=== PATIENT | female | born 2000 | race Two or more races ===

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

== ENCOUNTER 2020-08-10 17:15 | Emergency (ER) | payer BC ==
[~2020-08-10] VITALS: Ht 160 cm; Wt 63.6 kg
[~2020-08-10 17:15] MED LIST: CEPH500T PO; IBUP-1060 PO; PENI500T PO
--- NOTE | 2020-08-10 17:43 | PHYS DOC ---
Past Medical History Past Medical History: No Pertinent History, UTI Past Surgical History: No Surgical History Smoking Status: Never Smoker Alcohol Use: None Drug Use: None General Adult EDM: Chief Complaint: ABDOMINAL PAIN HPI: HPI: Patient is a 19 year old female with history of UTI presenting today compl aining of mild bilateral pelvic pain, symptoms began 4 days ago. Patient denies anything exacerbating or relieving the pain. Describes the pain as sharp and intermittent. States the last time she had similar pain she had UTI. Review of Systems: Review of Systems: Constitutional: Denies fever or chills. [] Eyes: Denies change in visual acuity. [] HENT: Denies nasal congestion or sore throat. [] Respiratory: Denies cough or shortness of breath. [] Cardiovascular: Denies chest pain or edema. [] GI: Reports pelvic pain. Denies abdominal pain, nausea, vomiting, bloody stools or diarrhea. [] : denies dysuria. [] Musculoskeletal: Denies back pain or joint pain. [] Integument: Denies rash. [] Neurologic: Denies headache, focal weakness or sensory changes. [] Psychiatric: Denies depression or anxiety. [] Heart Score: Risk Factors: Risk Factors: DM, Current or recent (<one month) smoker, HTN, HLP, family history of CAD, obesity. Risk Scores: Score 0 - 3: 2.5% MACE over next 6 weeks - Discharge Home Score 4 - 6: 20.3% MACE over next 6 weeks - Admit for Clinical Observation Score 7 - 10: 72.7% MACE over next 6 weeks - Early Invasive Strategies Allergies: Allergies: Allergies Coded Allergies Type Severity Reaction Last Updated Verified No Known Drug Allergies 10/13/14 No Physical Exam: PE: Constitutional: Well developed, well nourished, no acute distress, non-toxic appearance. [] HENT: Normocephalic, atraumatic, bilateral external ears normal, oropharynx moist, no oral exudates, nose normal. [] Eyes: PERRLA, EOMI, conjunctiva normal, no discharge. [] Neck: Normal range of motion, no tenderness, supple, no stridor. [] Cardiovascular:Heart rate regular rhythm, no murmur [] Lungs & Thorax: Bilateral breath sounds clear to auscultation [] Abdomen: Bowel sounds normal, soft, no tenderness, no masses, no pulsatile masses. [] Pelvic exam External pelvic appears normal, cervix is visualized, closed, no CMT, no adnexal tenderness. Small amount of white discharge in the vaginal vault. Skin: Warm, dry, no erythema, no rash. [] Back: No tenderness, no CVA tenderness. [] Extremities: No tenderness, no cyanosis, no clubbing, ROM intact, no edema. [] Neurologic: Alert and oriented X 3, normal motor function, normal sensory function, no focal deficits noted. [] Psychologic: Affect normal, judgement normal, mood normal. [] EKG: EKG: [] Radiology/Procedures: Radiology/Procedures: [] Course & Med Decision Making: Course & Med Decision Making Pertinent Labs and Imaging studies reviewed. (See chart for details) This is a 19-year-old female patient presenting to the ED today with pelvic pain, symptoms began 4 days ago. Positive for UTI and bacterial vaginosis, discharged on cephalexin and Flagyl. Follow-up with PCP in 1 to 2 weeks. Dot Disclaimer: Dot Disclaimer: This electronic medical record was generated, in whole or in part, using a voice recognition dictation system. Departure Departure Impression: Primary Impression: UTI (urinary tract infection) Qualified Codes: N39.0 - Urinary tract infection, site not specified Additional Impression: Bacterial vaginosis Disposition: 01 DC HOME SELF CARE/HOMELESS Condition: STABLE Referrals: NO PCP (PCP) Follow-up with your doctor in 1 to 2 weeks Patient Instructions: Bacterial Vaginosis, [id number], Urinary Tract Infection Additional Instructions: You have urinary tract infection and bacterial vaginosis. We put you on antib iotics, take them as prescribed until completed. You can take Tylenol or Motrin for your pain. Follow-up with your doctor in 1 to 2 weeks Scripts Metronidazole (FLAGYL) 500 Mg Tablet 1 TAB PO BID, #14 TAB Prov: IAN SHIPLEY PIANO MECHANIC 08/10/20 Cephalexin (CEPHALEXIN) 500 Mg Tablet 1 TAB PO BID, #14 TAB Prov: MUTUNGAIAN PIANO MECHANIC 08/10/20 IAN SHIPLEY APRN Aug 10, 2020 17:43
[2020-08-10 17:53] LABS: BILIRUBIN,URINE NEGATIVE (NEG); CLARITY,URINE CLEAR; COLOR,URINE YELLOW; NITRITE,URINE POSITIVE (NEG); PH,URINE 6.5 (<5.0-8.0); PROTEIN,URINE NEGATIVE (NEG-TRACE)
[2020-08-10 18:08] VITALS: BP 118/62
[2020-08-10 18:10] LABS: BACTERIA,URINE MOD /HPF (0-FEW); WBC,URINE 20-40 /HPF (0-4)
[2020-08-10] MEDS ORDERED: METR500T PO (18:17)
[2020-08-10] MEDS ORDERED: CEPH500T PO (18:17)
[2020-08-13 00:11] LABS: GC PROBE Negative (Negative)
== END 2020-08-10 18:23 | disposition home or self-care (01) ==
LOC: ER 17:15
DX: N39.0 Urinary tract infection, site not specified (principal); N76.0 Acute vaginitis; B96.89 Other specified bacterial agents as the cause of diseases classified elsewhere
CPT/HCPCS: 81001; 81025; 87491; 87591; 99284; Q0111

== ENCOUNTER 2020-10-18 17:24 | Observation (INO) | payer SELFPAY ==
[~2020-10-18] VITALS: Ht 157.5 cm; Wt 73.0 kg
[~2020-10-18 17:24] MED LIST changes: +METR500T PO
--- NOTE | 2020-10-18 20:29 | PHYS DOC ---
Past Medical History Past Medical History: No Pertinent History, UTI Past Surgical History: No Surgical History Smoking Status: Never Smoker Alcohol Use: None Drug Use: None General Adult EDM: Chief Complaint: ABDOMINAL PAIN HPI: HPI: Patient is a 19 year old female with no past medical history presents emergency department for left-sided and lower abdominal pain. Patient reports pain started yesterday. Located in the left side of the abdomen, constant, sharp, radiates down to the left and right lower quadrant. She denies nausea vomiting fever chills chest pain shortness of breath dysuria hematuria vaginal bleeding vaginal discharge. Patient denies history of STD. Patient has had no abdominal surgeries. Denies drugs alcohol or tobacco. Review of Systems: Review of Systems: Review of Systems: Constitutional: Denies fever or chills Eyes: Denies redness or eye pain HENT: Denies nasal congestion or sore throat Respiratory: Denies cough or shortness of breath Cardiovascular: Denies chest pain or palpitations GI: denies nausea, denies vomiting or diarrhea : Denies dysuria or hematuria Musculoskeletal: Denies back pain or joint pain Integument: Denies rash or skin lesions Neurologic: Denies headache, focal weakness or sensory changes Heart Score: C/O Chest Pain: No Allergies: Allergies: Allergies Coded Allergies Type Severity Reaction Last Updated Verified No Known Drug Allergies 10/13/14 No Physical Exam: PE: *GENERAL APPEARANCE: Awake and alert. Cooperative. No acute distress. Non toxic appearing. HEAD: Normocephalic. Atraumatic. EYES: EOM's grossly intact. Sclera anicteric. Conjunctiva clear ENT:. Airway patent. Mucous membranes moist. No trismus. Tolerating secretions. NECK: Supple. Trachea midline. HEART: Regular rate and rhythm. Radial pulses 2+. Good capillary refill. LUNGS: Respirations unlabored. Clear to auscultation bilaterally. No rales, rhonchi, wheezing or retractions. ABDOMEN: Soft. left lower abdominal tenderness. Left CVA tenderness. +rovsigns. No guarding or rebound. No right CVA tenderness. No palpable or pulsatile mass. EXTREMITIES: No acute deformities. No edema, erythema or calf tenderness. SKIN: Warm and dry. No rash. NEUROLOGICAL: Alert and oriented x3. No gross neurological deficits. Moves all 4 extremities spontaneously. PSYCHIATRIC: Normal mood. Current Patient Data: Vital Signs: Vital Signs Date Time Temp Pulse Resp B/P (MAP) Pulse Ox O2 Delivery O2 Flow Rate FiO2 10/18/20 18:46 97.6 72 18 128/71 (90) 98 Room Air 97.6 EKG: EKG: [] Radiology/Procedures: Radiology/Procedures: []PATIENT: OLIVIA MARIAACCOUNT: [id number]#: [id number] : 2000 LOCATION: ER AGE: 19 SEX: F EXAM STATUS: REG ER ORD. PHYSICIAN: GOPAL BURR DO REASON: left sided abd pain PROCEDURE: CT ABD PELV W/ IV CONTRST ONLY INDICATION: Reason: left sided abd pain / Spl. Instructions: [id number] [phone] / History: . COMPARISON: None. TECHNIQUE: Axial CT images obtained through the abdomen and pelvis with contrast. One or more of the following individualized dose reduction techniques were utilized for this examination: 1. Automated exposure control; 2. Adjustment of the mA and/or kV according to patient size; 3. Use of iterative reconstruction technique. FINDINGS: Abdominal aorta is not aneurysmal. Region of low density within the lower thoracic aorta. No intrahepatic bile duct dilation. No peripancreatic fluid collection. Spleen unremarkable. No hydronephrosis. Urinary bladder is partially distended. Uterus is visualized. Appendix measures up to about 6 mm without adjacent inflammatory changes seen at this time. Fullness of bilateral adnexa. IMPRESSION: * No evidence of bowel obstruction or hydronephrosis. * Appendix measures near the upper limits of normal in size without definitive adjacent inflammatory changes at this time therefore this does not fulfill all of the CT criteria for appendicitis. * At the lower thoracic aorta there is a linear region of low density of the lumen. This is likely artifactual in nature but if the patient does have symptoms in the region and further clarification is desired CT angiogram of the chest could BE obtained to exclude dissection flap which would be a less likely cause of this finding in a patient of this age. * There is some mild prominence of the bilateral adnexa left greater than right. Could be from prominent ovarian size but underlying ovarian lesion not excluded. Electronically signed by: Julita Berumen MD (10/18/2020 10:08 PM) [employer]- [id number] DICTATED and SIGNED BY: JULITA BERUMEN MD DATE: 10/18/20 [id number] PATIENT: OLIVIA MARIA ACCOUNT: [id number] : 2000 LOCATION: ER AGE: 19 SEX: F EXAM STATUS: REG ER ORD. PHYSICIAN: GOPAL BURR DO REASON: lt abd pain r/o torsion PROCEDURE: PELVIS ULTRASOUND Pelvic ultrasound complete: Reason for examination: Left lower quadrant abdominal pain. Transabdominal ultrasound examination of the pelvis was performed. Uterus measures 6.8 x 5.0 x 3.3 cm in greatest dimensions and shows no focal mass. Endometrium is not abnormally thickened at 6 mm. Right ovary measures 2.9 x 1.5 x 1.2 cm in greatest dimension and shows good vascular flow. Left ovary measures 2.8 x 2.2 x 2.1 cm in greatest dimension and shows good vascular flow. No adnexal masses or free fluid are evident. IMPRESSION: Good vascular flow to the ovaries bilaterally. No focal abnormality seen in the pelvis. Electronically signed by: Hardy Acuña MD (10/18/2020 11:51 PM) [facility] DICTATED and SIGNED BY: HARDY ACUÑA MD DATE: 10/18/20 [id number] PATIENT: OLIVIA MARIA ACCOUNT: [id number] : 2000 LOCATION: ER AGE: 19 SEX: F EXAM STATUS: REG ER ORD. PHYSICIAN: GOPAL BURR DO REASON: abnormality of thoracic aorta, left flank pain PROCEDURE: CT ANGIOGRAPHY CHEST CT angiogram of the chest with contrast: Reason for examination: Left flank pain. Evaluate for possible chest abnormality. Helical images were obtained through the chest with intravenous administration of Omnipaque 350 using PE protocol. 3-D MIPS reconstruction was performed in sagittal and coronal planes. Exposure: One or more of the following individualized dose reduction techniques were utilized for this examination: 1. Automated exposure control 2. Ad justment of the mA and/or kV according to patient size 3. Use of iterative reconstruction technique. No abnormality seen at the thyroid gland. The trachea and mainstem bronchi show no intraluminal lesions. No abnormality seen at the esophagus. The thoracic aorta and visualized portion of the upper abdominal aorta shows no aneurysmal dilatation or dissection. The heart size is normal with no pericardial effusion. There is no evidence of pulmonary embolus. The lung hwang are clear. No acute bony abnormalities seen. Visualized portions of the liver, spleen and kidneys show no abnormalities. IMPRESSION: No evidence of pulmonary embolus. No thoracic aortic aneurysm or dissection. No acute abnormality seen in the chest. Electronically signed by: Hardy Acuña MD (10/19/2020 2:39 AM) [facility] DICTATED and SIGNED BY: HARDY ACUÑA MD DATE: 10/19/20 [id number] Course & Med Decision Making: Course & Med Decision Making MDM: 19-year-old female presents emergency department for abdominal pain. Here in the emergency department patient's abdomen is tender in the lower abdomen. Upon palpation of the left side of the abdomen the right side does cause some pain. Does have some left CVA tenderness. Patient's vital signs are stable. No leukocytosis. Patient is not . Patient does have some blood in her urine. She is currently not on her menstrual cycle. CT abdomen pelvis showed the appendix at the upper limits of normal. There is a linear area in the thoracic aorta of low density that is possibly artifactual but could be dissection. Mild prominence of bilateral adnexa left greater than right. Could be from ovarian size but ovarian lesion not excluded. With this CT finding ultrasound of the pelvis was done that showed no abnormalities. Good flow to both ovaries. CT of the chest unremarkable. Patient is still having pain in the abdomen. I did discuss case with the general surgeon Dr. Davis about the patient's symptoms and slightly abnormal appendix. Defers admission to the hospitalist service. Will see in consultation. At this time based on patient's symptoms and findings will admit to the hospital for further observation and evaluation. Spoke with patient. Agreeable to admission. They are aware of all labs and imaging. All questions answered and patient stable at time of admission. Dragon Disclaimer: Dragon Disclaimer: This electronic medical record was generated, in whole or in part, using a voice recognition dictation system. Departure Departure Impression: Primary Impression: Abdominal pain Disposition: ADMITTED INPT THIS HOSP (Patient admitted to Dr. Euceda at 0300. Patient stable at time of admission. Spoke with Dr. Euceda at 0530. Will see the patient. ) Condition: STABLE Referrals: NO PCP (PCP) Scripts Dicyclomine Hcl (DICYCLOMINE HCL) 10 Mg Capsule 1 CAP PO PRN Q6HRS PRN for ABDOMINAL CRAMPS, #30 CAP 0 Refills Prov: ZHENG SHEN MD 10/19/20 [facility]URR [facility] 20[facility]29
[2020-10-18 20:30] LABS: BILIRUBIN,URINE NEGATIVE (NEG); CLARITY,URINE CLEAR; COLOR,URINE YELLOW; NITRITE,URINE NEGATIVE (NEG); PH,URINE 6.5 (<5.0-8.0); PROTEIN,URINE NEGATIVE (NEG-TRACE)
[2020-10-18 20:35] LABS: BACTERIA,URINE 0 /HPF (0-FEW); RBC,URINE OCC /HPF (0-2); WBC,URINE 0 /HPF (0-4)
[2020-10-18 21:23] LABS: BASO % 1 % (0-3); EOS % 1 % (0-3); HEMATOCRIT 35.3 % (36.0-47.0); LYMPH # 2.5 x10^3/uL (1.0-4.8); LYMPH % 29 % (24-48); MEAN CORPUSCULAR HEMOGLOBIN 23 pg (25-35); MEAN CORPUSCULAR HGB CONC 31 g/dL (31-37); MEAN CORPUSCULAR VOLUME 73 fL (79-100); MONO # 0.6 x10^3/uL (0.0-1.1); MONO % 7 % (0-9); NEUT # 5.4 x10^3/uL (1.8-7.7); NEUT % 63 % (31-73); PLATELET COUNT 302 x10^3/uL (140-400); RED BLOOD COUNT 4.82 x10^6/uL (3.50-5.40); RED CELL DISTRIBUTION WIDTH 19.9 % (11.5-14.5); WHITE BLOOD COUNT 8.6 x10^3/uL (4.0-11.0)
[2020-10-18 21:36] LABS: CALCIUM 8.5 mg/dL (8.5-10.1); CREATININE 0.7 mg/dL (0.6-1.0); GFR 107.8; POTASSIUM 3.7 mmol/L (3.5-5.1)
[2020-10-18] MEDS ORDERED: CONTRAST GIVEN. MC PRN (21:45)
[2020-10-18 21:48] LABS: ALBUMIN 3.7 g/dL (3.4-5.0); ALBUMIN/GLOBULIN RATIO 0.8 (1.0-1.7); TOTAL BILIRUBIN 0.4 mg/dL (0.2-1.0); TOTAL PROTEIN 8.1 g/dL (6.4-8.2)
[2020-10-18 22:00] LABS: PLT ESTIMATE ADEQUATE (ADEQUATE)
[2020-10-18] MEDS ORDERED: IOHEXOL 300 MG/ML 100ML VIAL. IV ONE (22:00)
[2020-10-18 22:01] LABS: ANISOCYTOSIS SLIGHT; HYPOCHROMIA MOD; MICROCYTOSIS SLIGHT; OVALOCYTES FEW; POIKILOCYTOSIS SLIGHT
--- NOTE | 2020-10-18 22:10 | RAD ---
INDICATION: Reason: left sided abd pain / Spl. Instructions: [id number] [phone] / History: . COMPARISON: None. TECHNIQUE: Axial CT images obtained through the abdomen and pelvis with contrast. One or more of the following individualized dose reduction techniques were utilized for this examinat ion: 1. Automated exposure control; 2. Adjustment of the mA and/or kV according to patient size; 3 . Use of iterative reconstruction technique. FINDINGS: Abdominal aorta is not aneurysmal. Region of low density within the lower thoracic aorta. No intrahepatic bile duct dilation. No peripancreatic fluid collection. Spleen unremarkable. No hydronephrosis. Urinary bladder is partially distended. Uterus is visualized. Appendix measures up to about 6 mm without adjacent inflammatory changes seen at this time. Fullness of bilateral adnexa. IMPRESSION: * No evidence of bowel obstruction or hydronephrosis. * Appendix measures near the upper limits of normal in size without definitive adjacent inflammatory changes at this time therefore this does not fulfill all of the CT criteria for appendicitis. * At the lower thoracic aorta there is a linear region of low density of the lumen. This is likely a rtifactual in nature but if the patient does have symptoms in the region and further clarification is desired CT angiogram of the chest could BE obtained to exclude dissection flap which would be a less likely cause of this finding in a patient of this age. * There is some mild prominence of the bilateral adnexa left greater than right. Could be from promi nent ovarian size but underlying ovarian lesion not excluded. Electronically signed by: Chaparro Dove MD (10/18/2020 10:08 PM) [id number]
--- NOTE | 2020-10-18 23:54 | RAD ---
Pelvic ultrasound complete: Reason for examination: Left lower quadrant abdominal pain. Transabdominal ultrasound examination of the pelvis was performed. Uterus measures 6.8 x 5.0 x 3.3 cm in greatest dimensions and shows no focal mass. Endometrium is not abnormally thickened at 6 mm. Right ovary measures 2.9 x 1.5 x 1.2 cm in greatest dimension and shows good vascular flow. Left ovary measures 2.8 x 2.2 x 2.1 cm in greatest dimension and shows good vascular flow. No adnexal masses or free fluid are evident. IMPRESSION: Good vascular flow to the ovaries bilaterally. No focal abnormality seen in the pelvis. Electronically signed by: Dana Rodriguez MD (10/18/2020 11:51 PM) [facility]AN[facility]
[2020-10-19] MEDS ORDERED: IOHEXOL 350 MG/ML 100 ML VIAL. IV ONE (01:45)
--- NOTE | 2020-10-19 02:41 | RAD ---
CT angiogram of the chest with contrast: Reason for examination: Left flank pain. Evaluate for possible chest abnormality. Helical images were obtained through the chest with intravenous administration of Omnipaque 350 using PE protocol. 3-D MIPS reconstruction was performed in sagittal and coronal planes. Exposure: One or more of the following individualized dose reduction techniques were utilized for thi s examination: 1. Automated exposure control 2. Adjustment of the mA and/or kV according to patient size 3. Use of iterative reconstruction technique. No abnormality seen at the thyroid gland. The trachea and mainstem bronchi show no intraluminal lesio ns. No abnormality seen at the esophagus. The thoracic aorta and visualized portion of the upper abdo yanick aorta shows no aneurysmal dilatation or dissection. The heart size is normal with no pericardia l effusion. There is no evidence of pulmonary embolus. The lung hwang are clear. No acute bony abnor malities seen. Visualized portions of the liver, spleen and kidneys show no abnormalities. IMPRESSION: No evidence of pulmonary embolus. No thoracic aortic aneurysm or dissection. No acute abnormality seen in the chest. Electronically signed by: Dana Rodriguez MD (10/19/2020 2:39 AM) AD[facility]ANO
[2020-10-19] MEDS ORDERED: ONDANSETRON PF 4 MG/2 ML VIAL. IV PRN (03:15)
[2020-10-19 04:30] VITALS: BP 94/50
[2020-10-19 07:00] VITALS: BP 98/50
--- NOTE | 2020-10-19 07:29 | PDOC1 ---
History and Physical Date of Admission Date of Admission DATE: 10/19/20 TIME: 07:09 Identification/Chief Complaint Chief Complaint Abdominal pain Source Source: Chart review, Patient History of Present Illness History of Present Illness Patient is a 19 year old female with no past medical history, who presents to the ED with complaints of constant left upper and left lower abdominal pain that started two days ago. She reports sharp pain, currently 2/10. She does report some improvement with bowel movements, but last bowel movements have been very small. She denies nausea, vomiting, or fever. Upon evaluation in the ED, CT abdomen/pelvis showed appendix measuring near the upper limits of normal without definitive adjacent inflammatory changes. There is a linear area in the thoracic aorta of low density that was initially concerning for dissection, however CTA was negative for thoracic aortic aneurysm or dissection. Pelvic ultrasound showed good flow to both ovaries. Case was discussed with the general surgeon Dr. Davis who recommended admission to hospital service. Past Medical History Past Medical History Denies past medical history Past Surgical History Past Surgical History: No pertinent history Family History Family History Denies pertinent family history Social History Smoke: No ALCOHOL: none Drugs: None Current Problem List Problem List Problems Medical Problems: (1) Abdominal pain Status: Acute Current Medications Current Medications Current Medications Iohexol (Omnipaque 300 Mg/ml) 75 ml 1X ONCE IV Last administered on 10/18/20at 21:46; Start 10/18/20 at 22:00; Stop 10/18/20 at 22:01; Status DC Info (CONTRAST GIVEN -- Rx MONITORING) 1 each PRN DAILY PRN MC SEE COMMENTS; Start 10/18/20 at 21:45; Stop 10/20/20 at 21:44 Iohexol (Omnipaque 350 Mg/ml) 70 ml 1X ONCE IV Last administered on 10/19/20at 01:45; Start 10/19/20 at 01:45; Stop 10/19/20 at 01:48; Status DC Ondansetron HCl (Zofran) 4 mg PRN Q8HRS PRN IV NAUSEA/VOMITING 1ST CHOICE; Start 10/19/20 at 03:15; Stop 10/20/20 at 03:14 Active Scripts Active Reported No Known Medications Prior To Admisstion (Info) Each 1 Each MC 1X Allergies Allergies: Coded Allergies: No Known Drug Allergies (Unverified , 10/13/14) ROS Review of System GENERAL: No history of weight change, weakness or fevers. SKIN: No bruising, hair changes or rashes. EYES: No blurred, double or loss of vision. NOSE AND THROAT: No history of nosebleeds, hoarseness or sore throat. HEART: Denies chest pain, denies palpitations. LUNGS: Denies cough, hemoptysis, wheezing or shortness of breath. GASTROINTESTINAL: Lower abdominal pain. Denies nausea, vomiting, abdominal pain. GENITOURINARY: Denies dysuria, frequency, urgency, hematuria. NEUROLOGIC: Denies history of numbness, tingling, tremor or weakness. PSYCHIATRIC: Denies anxiety, denies depression. ENDOCRINE: No history of heat or cold intolerance, polyuria or polydipsia. EXTREMITIES: Denies muscle weakness, joint pain, pain on walking or stiffness. Physical Exam Physical Exam General: Alert, Oriented X3, Cooperative, mild distress HEENT: PERRLA, EOMI Lungs: Clear to auscultation, Normal air movement Heart: RRR, no murmurs Cardiovascular: S1, S2 Abdomen: Left upper and left lower abdominal tenderness. Normal bowel sounds, Soft. Extremities: No clubbing, No cyanosis Skin: No rashes, No significant lesion Neuro: Normal speech, Normal tone, Sensation intact Psych/Mental Status: Mental status NL, Mood NL Vitals Vitals Vital Signs Date Time Temp Pulse Resp B/P (MAP) Pulse Ox O2 Delivery O2 Flow Rate FiO2 10/19/20 04:30 97.9 66 18 94/50 (65) 98 Room Air 97.9 Labs Labs Laboratory Tests Test 10/18/20 19:50 10/18/20 20:20 10/18/20 21:17 Urine Collection Type Unknown Urine Color Yellow Urine Clarity Clear Urine pH 6.5 (<5.0-8.0) Urine Specific [place] 1.010 (1.000-1.030) Urine Protein Negative mg/dL (NEG-TRACE) Urine Glucose (UA) Negative mg/dL (NEG) Urine Ketones (Stick) Negative mg/dL (NEG) Urine Blood Trace (NEG) Urine Nitrite Negative (NEG) Urine Bilirubin Negative (NEG) Urine Urobilinogen Dipstick 1.0 mg/dL (0.2 mg/dL) Urine Leukocyte Esterase Negative (NEG) Urine RBC Occ /HPF (0-2) Urine WBC 0 /HPF (0-4) Urine Squamous Epithelial Cells Few /LPF Urine Bacteria 0 /HPF (0-FEW) Bedside Urine HCG, Qualitative Hcg negative (Negative) White Blood Count 8.6 x10^3/uL (4.0-11.0) Red Blood Count 4.82 x10^6/uL (3.50-5.40) Hemoglobin 11.0 g/dL (12.0-15.5) Hematocrit 35.3 % (36.0-47.0) Mean Corpuscular Volume 73 fL (79-100) Mean Corpuscular Hemoglobin 23 pg (25-35) Mean Corpuscular Hemoglobin Concent 31 g/dL (31-37) Red Cell Distribution Width 19.9 % (11.5-14.5) Platelet Count 302 x10^3/uL (140-400) Neutrophils (%) (Auto) 63 % (31-73) Lymphocytes (%) (Auto) 29 % (24-48) Monocytes (%) (Auto) 7 % (0-9) Eosinophils (%) (Auto) 1 % (0-3) Basophils (%) (Auto) 1 % (0-3) Neutrophils # (Auto) 5.4 x10^3/uL (1.8-7.7) Lymphocytes # (Auto) 2.5 x10^3/uL (1.0-4.8) Monocytes # (Auto) 0.6 x10^3/uL (0.0-1.1) Eosinophils # (Auto) 0.0 x10^3/uL (0.0-0.7) Basophils # (Auto) 0.0 x10^3/uL (0.0-0.2) Platelet Estimate Adequate (ADEQUATE) Hypochromasia Mod Poikilocytosis Slight Anisocytosis Slight Microcytosis Slight Ovalocytes Few Sodium Level 137 mmol/L (136-145) Potassium Level 3.7 mmol/L (3.5-5.1) Chloride Level 101 mmol/L (98-107) Carbon Dioxide Level 28 mmol/L (21-32) Anion Gap 8 (6-14) Blood Urea Nitrogen 14 mg/dL (7-20) Creatinine 0.7 mg/dL (0.6-1.0) Estimated GFR (Cockcroft-Gault) 107.8 BUN/Creatinine Ratio 20 (6-20) Glucose Level 87 mg/dL (70-99) Calcium Level 8.5 mg/dL (8.5-10.1) Total Bilirubin 0.4 mg/dL (0.2-1.0) Aspartate Amino Transf (AST/SGOT) 18 U/L (15-37) Alanine Aminotransferase (ALT/SGPT) 19 U/L (14-59) Alkaline Phosphatase 87 U/L (46-116) Total Protein 8.1 g/dL (6.4-8.2) Albumin 3.7 g/dL (3.4-5.0) Albumin/Globulin Ratio 0.8 (1.0-1.7) Lipase 108 U/L (73-393) Laboratory Tests Test 10/18/20 19:50 10/18/20 20:20 10/18/20 21:17 Urine Collection Type Unknown Urine Color Yellow Urine Clarity Clear Urine pH 6.5 (<5.0-8.0) Urine Specific [place] 1.010 (1.000-1.030) Urine Protein Negative mg/dL (NEG-TRACE) Urine Glucose (UA) Negative mg/dL (NEG) Urine Ketones (Stick) Negative mg/dL (NEG) Urine Blood Trace (NEG) Urine Nitrite Negative (NEG) Urine Bilirubin Negative (NEG) Urine Urobilinogen Dipstick 1.0 mg/dL (0.2 mg/dL) Urine Leukocyte Esterase Negative (NEG) Urine RBC Occ /HPF (0-2) Urine WBC 0 /HPF (0-4) Urine Squamous Epithelial Cells Few /LPF Urine Bacteria 0 /HPF (0-FEW) Bedside Urine HCG, Qualitative Hcg negative (Negative) White Blood Count 8.6 x10^3/uL (4.0-11.0) Red Blood Count 4.82 x10^6/uL (3.50-5.40) Hemoglobin 11.0 g/dL (12.0-15.5) Hematocrit 35.3 % (36.0-47.0) Mean Corpuscular Volume 73 fL (79-100) Mean Corpuscular Hemoglobin 23 pg (25-35) Mean Corpuscular Hemoglobin Concent 31 g/dL (31-37) Red Cell Distribution Width 19.9 % (11.5-14.5) Platelet Count 302 x10^3/uL (140-400) Neutrophils (%) (Auto) 63 % (31-73) Lymphocytes (%) (Auto) 29 % (24-48) Monocytes (%) (Auto) 7 % (0-9) Eosinophils (%) (Auto) 1 % (0-3) Basophils (%) (Auto) 1 % (0-3) Neutrophils # (Auto) 5.4 x10^3/uL (1.8-7.7) Lymphocytes # (Auto) 2.5 x10^3/uL (1.0-4.8) Monocytes # (Auto) 0.6 x10^3/uL (0.0-1.1) Eosinophils # (Auto) 0.0 x10^3/uL (0.0-0.7) Basophils # (Auto) 0.0 x10^3/uL (0.0-0.2) Platelet Estimate Adequate (ADEQUATE) Hypochromasia Mod Poikilocytosis Slight Anisocytosis Slight Microcytosis Slight Ovalocytes Few Sodium Level 137 mmol/L (136-145) Potassium Level 3.7 mmol/L (3.5-5.1) Chloride Level 101 mmol/L (98-107) Carbon Dioxide Level 28 mmol/L (21-32) Anion Gap 8 (6-14) Blood Urea Nitrogen 14 mg/dL (7-20) Creatinine 0.7 mg/dL (0.6-1.0) Estimated GFR (Cockcroft-Gault) 107.8 BUN/Creatinine Ratio 20 (6-20) Glucose Level 87 mg/dL (70-99) Calcium Level 8.5 mg/dL (8.5-10.1) Total Bilirubin 0.4 mg/dL (0.2-1.0) Aspartate Amino Transf (AST/SGOT) 18 U/L (15-37) Alanine Aminotransferase (ALT/SGPT) 19 U/L (14-59) Alkaline Phosphatase 87 U/L (46-116) Total Protein 8.1 g/dL (6.4-8.2) Albumin 3.7 g/dL (3.4-5.0) Albumin/Globulin Ratio 0.8 (1.0-1.7) Lipase 108 U/L (73-393) Images Images CT ABD PELV W/ IV CONTRST ONLY INDICATION: Reason: left sided abd pain / Spl. Instructions: [id number] 75ML [phone] / History: . COMPARISON: None. TECHNIQUE: Axial CT images obtained through the abdomen and pelvis with contrast. One or more of the following individualized dose reduction techniques were utilized for this examination: 1. Automated exposure control; 2. Adjustment of the mA and/or kV according to patient size; 3. Use of iterative reconstruction technique. FINDINGS: Abdominal aorta is not aneurysmal. Region of low density within the lower thoracic aorta. No intrahepatic bile duct dilation. No peripancreatic fluid collection. Spleen unremarkable. No hydronephrosis. Urinary bladder is partially distended. Uterus is visualized. Appendix measures up to about 6 mm without adjacent inflammatory changes seen at this time. Fullness of bilateral adnexa. IMPRESSION: * No evidence of bowel obstruction or hydronephrosis. * Appendix measures near the upper limits of normal in size without definitive adjacent inflammatory changes at this time therefore this does not fulfill all of the CT criteria for appendicitis. * At the lower thoracic aorta there is a linear region of low density of the lumen. This is likely artifactual in nature but if the patient does have symptoms in the region and further clarification is desired CT angiogram of the chest could BE obtained to exclude dissection flap which would be a less likely cause of this finding in a patient of this age. * There is some mild prominence of the bilateral adnexa left greater than right. Could be from prominent ovarian size but underlying ovarian lesion not excluded. Electronically signed by: Julita Berumen MD (10/18/2020 10:08 PM) DESKTOP- [id number] DICTATED and SIGNED BY: JULITA BERUMEN MD DATE: 10/18/20 [id number] PATIENT: OLIVIA MARIA ACCOUNT: [id number] : 2000 LOCATION: ER AGE: 19 SEX: F EXAM STATUS: REG ER ORD. PHYSICIAN: GOPAL BURR DO REASON: lt abd pain r/o torsion PROCEDURE: PELVIS ULTRASOUND Pelvic ultrasound complete: Reason for examination: Left lower quadrant abdominal pain. Transabdominal ultrasound examination of the pelvis was performed. Uterus measures 6.8 x 5.0 x 3.3 cm in greatest dimensions and shows no focal mass. Endometrium is not abnormally thickened at 6 mm. Right ovary measures 2.9 x 1.5 x 1.2 cm in greatest dimension and shows good vascular flow. Left ovary measures 2.8 x 2.2 x 2.1 cm in greatest dimension and shows good vascular flow. No adnexal masses or free fluid are evident. IMPRESSION: Good vascular flow to the ovaries bilaterally. No focal abnormality seen in the pelvis. Electronically signed by: Hardy Acuña MD (10/18/2020 11:51 PM) [facility] DICTATED and SIGNED BY: HARDY ACUÑA MD DATE: 10/18/20 [id number] PATIENT: OLIVIA MARIA ACCOUNT: [id number] : 2000 LOCATION: ER AGE: 19 SEX: F EXAM STATUS: REG ER ORD. PHYSICIAN: GOPAL BURR DO REASON: abnormality of thoracic aorta, left flank pain PROCEDURE: CT ANGIOGRAPHY CHEST CT angiogram of the chest with contrast: Reason for examination: Left flank pain. Evaluate for possible chest abnormality. Helical images were obtained through the chest with intravenous administration of Omnipaque 350 using PE protocol. 3-D MIPS reconstruction was performed in sagittal and coronal planes. Exposure: One or more of the following individualized dose reduction techniques were utilized for this examination: 1. Automated exposure control 2. Adjustment of the mA and/or kV according to patient size 3. Use of iterative reconstruction technique. No abnormality seen at the thyroid gland. The trachea and mainstem bronchi show no intraluminal lesions. No abnormality seen at the esophagus. The thoracic aorta and visualized portion of the upper abdominal aorta shows no aneurysmal dilatation or dissection. The heart size is normal with no pericardial effusion. There is no evidence of pulmonary embolus. The lung hwang are clear. No acute bony abnormalities seen. Visualized portions of the liver, spleen and kidneys show no abnormalities. IMPRESSION: No evidence of pulmonary embolus. No thoracic aortic aneurysm or dissection. No acute abnormality seen in the chest. VTE Prophylaxis Ordered VTE Prophylaxis Devices: Yes VTE Pharmacological Prophylaxi: No Assessment/Plan Assessment/Plan Possible appendicitis Plan: Consultation for general surgery Pain management, IV fluids Keep patient n.p.o. for possible surgical intervention Her symptoms seem more consistent with IBS or functional abdominal pain due to constipation. FEN - NPO PPX - SCDs FULL CODE Dispo - observation for above; I imagine patient may discharge today if no surgical intervention is planned. Justifications for Admission Other Justification ZHENG SHEN MD Oct 19, 2020 07:29
[2020-10-19] MEDS ORDERED: ZOLPIDEM 5 MG TABLET. PO PRN (07:30)
[2020-10-19] MEDS ORDERED: MAGNESIUM HYDROXIDE 2,400 MG/30 ML ORAL.SUSP. PO PRN (07:30)
[2020-10-19] MEDS ORDERED: BISACODYL 10 MG SUPP.RECT. PR PRN (07:30)
[2020-10-19] MEDS ORDERED: MAG HYDROX/ALUMINUM HYD/SIMETH 30 ML ORAL.SUSP PO PRN (07:30)
[2020-10-19] MEDS ORDERED: oxyCODONE/APAP 5/325 1 TAB TABLET PO PRN (07:30)
[2020-10-19] MEDS ORDERED: ACETAMINOPHEN 325 MG TABLET. PO PRN (07:30)
[2020-10-19] MEDS ORDERED: MORPHINE SULFATE 2 MG/ML VIAL. IV PRN (07:30)
[2020-10-19] MEDS ORDERED: CALCIUM CARBONATE 500 MG TAB.CHEW PO PRN (07:30)
[2020-10-19] MEDS ORDERED: HYDROmorphone 2 MG/ML VIAL IV PRN (07:30)
[2020-10-19] MEDS ORDERED: IBUPROFEN 400 MG TABLET. PO PRN (07:30)
[2020-10-19] MEDS ORDERED: HYDROcodone/APAP 5/325MG 1 TAB TABLET PO PRN ×2 (07:30)
[2020-10-19] MEDS ORDERED: ONDANSETRON PF 4 MG/2 ML VIAL. IVP PRN (07:30)
[2020-10-19] MEDS ORDERED: MORPHINE SULFATE 4 MG/ML VIAL. IV PRN (07:45)
[2020-10-19] MEDS ORDERED: fentaNYL PF VIAL 100 MCG/2 ML VIAL IVP PRN (07:45)
[2020-10-19 11:00] VITALS: BP 91/50
--- NOTE | 2020-10-19 11:10 | NUR ---
[facility]ET[facility] following for discharge planning. Pt admitted with abdominal pain. Pt NPO and on IV pain medication. Pt on room air. test results pending. Pt self-pay, [facility] following. [facility]ANETT following. Addendum: 10/20/20 at 1117 by EDITA ROWLAND Pt discharged home, self-care. No JANETT needs.
[2020-10-19] MEDS ORDERED: DICY10CA3 PO (11:39)
--- NOTE | 2020-10-19 14:09 | PDOC2 ---
CONSULT Date of Consult Date of Consult DATE: 10/19/20 TIME: 14:05 Reason for Consult Reason for Consult: Left flank pain Referring Physician Referring Physician: Dr. Murphy Euceda Identification/Chief Complaint Chief Complaint left flank pain Source Source: Chart review, Patient History of Present Illness Reason for Visit: 19 yo F presents with c/o left flank pain. Pt feeling improved today. [place] reg diet and pain improved. Past Medical History Cardiovascular: No pertinent hx Past Surgical History Past Surgical History: No pertinent history Family History Family History: No Significant Social History No ALCOHOL: none Drugs: None Current Problem List Problem List Problems Medical Problems: (1) Abdominal pain Status: Acute Current Medications Current Medications Current Medications Iohexol (Omnipaque 300 Mg/ml) 75 ml 1X ONCE IV Last administered on 10/18/20at 21:46; Start 10/18/20 at 22:00; Stop 10/18/20 at 22:01; Status DC Info (CONTRAST GIVEN -- Rx MONITORING) 1 each PRN DAILY PRN MC SEE COMMENTS; Start 10/18/20 at 21:45; Stop 10/20/20 at 21:44 Iohexol (Omnipaque 350 Mg/ml) 70 ml 1X ONCE IV Last administered on 10/19/20at 01:45; Start 10/19/20 at 01:45; Stop 10/19/20 at 01:48; Status DC Ondansetron HCl (Zofran) 4 mg PRN Q8HRS PRN IV NAUSEA/VOMITING 1ST CHOICE; Start 10/19/20 at 03:15; Stop 10/19/20 at 12:21; Status DC Ondansetron HCl (Zofran) 4 mg PRN Q6HRS PRN IVP NAUSEA/VOMITING; Start 10/19/20 at 07:30 Al Hydroxide/Mg Hydroxide (Mylanta Plus Xs) 30 ml PRN Q3HRS PRN PO HEARTBURN / GAS; Start 10/19/20 at 07:30 Calcium Carbonate/ Glycine (Tums) 500 mg PRN Q3HRS PRN PO UPSET STOMACH; Start 10/19/20 at 07:30 Zolpidem Tartrate (Ambien) 5 mg PRN QHS PRN PO INSOMNIA, MAY REPEAT IN 1HR; Start 10/19/20 at 07:30 Morphine Sulfate (Morphine Sulfate) 2 mg PRN Q1HR PRN IV MODERATE PAIN - SEE COMMENTS; Start 10/19/20 at 07:30 Hydromorphone HCl (Dilaudid) 0.4 mg PRN Q1HR PRN IV PAIN (2nd Choice); Start 10/19/20 at 07:30 Acetaminophen/ Hydrocodone Bitart (Lortab 5/325) 1 tab PRN Q4HRS PRN PO MILD PAIN 1-3; Start 10/19/20 at 07:30 Acetaminophen/ Hydrocodone Bitart (Lortab 5/325) 2 tab PRN Q4HRS PRN PO MO DERATE PAIN; Start 10/19/20 at 07:30 Oxycodone/ Acetaminophen (Percocet 5/325) 1 tab PRN Q4HRS PRN PO SEVERE PAIN; Start 10/19/20 at 07:30 Acetaminophen (Tylenol) 650 mg PRN Q6HRS PRN PO Headaches, Temp > 101.5F; Start 10/19/20 at 07:30 Ibuprofen (Motrin) 400 mg PRN Q6HRS PRN PO INFLAMMATION; Start 10/19/20 at 07:30 Magnesium Hydroxide (Milk Of Magnesia) 2,400 mg PRN Q12HR PRN PO CONSTIPATION; Start 10/19/20 at 07:30 Bisacodyl (Dulcolax Supp) 10 mg PRN DAILY PRN NE CONSTIPATION; Start 10/19/20 at 07:30 Morphine Sulfate (Morphine Sulfate) 4 mg PRN Q2HR PRN IV SEVERE PAIN (2nd Choice); Start 10/19/20 at 07:45 Fentanyl Citrate (Fentanyl 2ml Vial) 50 mcg PRN Q2HR PRN IVP MOD/SEVERE PAIN (3rd Choice); Start 10/19/20 at 07:45 Active Scripts Active Dicyclomine Hcl 10 Mg Capsule 1 Cap PO PRN Q6HRS PRN Allergies Allergies: Coded Allergies: No Known Drug Allergies (Unverified , 10/13/14) ROS Gastrointestinal: Yes Abdominal Pain Physical Exam General: Alert, Oriented X3, Cooperative, No acute distress HEENT: Atraumatic Lungs: Normal air movement Abdomen: Soft, No tenderness Extremities: No clubbing, No cyanosis Skin: No rashes, No breakdown Neuro: Normal speech, Sensation intact Psych/Mental Status: Mental status NL, Mood NL Vitals VITALS Vital Signs Date Time Temp Pulse Resp B/P (MAP) Pulse Ox O2 Delivery O2 Flow Rate FiO2 10/19/20 11:00 97.8 80 17 91/50 (64) 99 Room Air 97.8 Labs Labs Laboratory Tests Test 10/18/20 19:50 10/18/20 20:20 10/18/20 21:17 Urine Collection Type Unknown Urine Color Yellow Urine Clarity Clear Urine pH 6.5 (<5.0-8.0) Urine Specific [place] 1.010 (1.000-1.030) Urine Protein Negative mg/dL (NEG-TRACE) Urine Glucose (UA) Negative mg/dL (NEG) Urine Ketones (Stick) Negative mg/dL (NEG) Urine Blood Trace (NEG) Urine Nitrite Negative (NEG) Urine Bilirubin Negative (NEG) Urine Urobilinogen Dipstick 1.0 mg/dL (0.2 mg/dL) Urine Leukocyte Esterase Negative (NEG) Urine RBC Occ /HPF (0-2) Urine WBC 0 /HPF (0-4) Urine Squamous Epithelial Cells Few /LPF Urine Bacteria 0 /HPF (0-FEW) Bedside Urine HCG, Qualitative Hcg negative (Negative) White Blood Count 8.6 x10^3/uL (4.0-11.0) Red Blood Count 4.82 x10^6/uL (3.50-5.40) Hemoglobin 11.0 g/dL (12.0-15.5) Hematocrit 35.3 % (36.0-47.0) Mean Corpuscular Volume 73 fL (79-100) Mean Corpuscular Hemoglobin 23 pg (25-35) Mean Corpuscular Hemoglobin Concent 31 g/dL (31-37) Red Cell Distribution Width 19.9 % (11.5-14.5) Platelet Count 302 x10^3/uL (140-400) Neutrophils (%) (Auto) 63 % (31-73) Lymphocytes (%) (Auto) 29 % (24-48) Monocytes (%) (Auto) 7 % (0-9) Eosinophils (%) (Auto) 1 % (0-3) Basophils (%) (Auto) 1 % (0-3) Neutrophils # (Auto) 5.4 x10^3/uL (1.8-7.7) Lymphocytes # (Auto) 2.5 x10^3/uL (1.0-4.8) Monocytes # (Auto) 0.6 x10^3/uL (0.0-1.1) Eosinophils # (Auto) 0.0 x10^3/uL (0.0-0.7) Basophils # (Auto) 0.0 x10^3/uL (0.0-0.2) Platelet Estimate Adequate (ADEQUATE) Hypochromasia Mod Poikilocytosis Slight Anisocytosis Slight Microcytosis Slight Ovalocytes Few Sodium Level 137 mmol/L (136-145) Potassium Level 3.7 mmol/L (3.5-5.1) Chloride Level 101 mmol/L (98-107) Carbon Dioxide Level 28 mmol/L (21-32) Anion Gap 8 (6-14) Blood Urea Nitrogen 14 mg/dL (7-20) Creatinine 0.7 mg/dL (0.6-1.0) Estimated GFR (Cockcroft-Gault) 107.8 BUN/Creatinine Ratio 20 (6-20) Glucose Level 87 mg/dL (70-99) Calcium Level 8.5 mg/dL (8.5-10.1) Total Bilirubin 0.4 mg/dL (0.2-1.0) Aspartate Amino Transf (AST/SGOT) 18 U/L (15-37) Alanine Aminotransferase (ALT/SGPT) 19 U/L (14-59) Alkaline Phosphatase 87 U/L (46-116) Total Protein 8.1 g/dL (6.4-8.2) Albumin 3.7 g/dL (3.4-5.0) Albumin/Globulin Ratio 0.8 (1.0-1.7) Lipase 108 U/L (73-393) Laboratory Tests Test 10/18/20 19:50 10/18/20 20:20 10/18/20 21:17 Urine Collection Type Unknown Urine Color Yellow Urine Clarity Clear Urine pH 6.5 (<5.0-8.0) Urine Specific [place] 1.010 (1.000-1.030) Urine Protein Negative mg/dL (NEG-TRACE) Urine Glucose (UA) Negative mg/dL (NEG) Urine Ketones (Stick) Negative mg/dL (NEG) Urine Blood Trace (NEG) Urine Nitrite Negative (NEG) Urine Bilirubin Negative (NEG) Urine Urobilinogen Dipstick 1.0 mg/dL (0.2 mg/dL) Urine Leukocyte Esterase Negative (NEG) Urine RBC Occ /HPF (0-2) Urine WBC 0 /HPF (0-4) Urine Squamous Epithelial Cells Few /LPF Urine Bacteria 0 /HPF (0-FEW) Bedside Urine HCG, Qualitative Hcg negative (Negative) White Blood Count 8.6 x10^3/uL (4.0-11.0) Red Blood Count 4.82 x10^6/uL (3.50-5.40) Hemoglobin 11.0 g/dL (12.0-15.5) Hematocrit 35.3 % (36.0-47.0) Mean Corpuscular Volume 73 fL (79-100) Mean Corpuscular Hemoglobin 23 pg (25-35) Mean Corpuscular Hemoglobin Concent 31 g/dL (31-37) Red Cell Distribution Width 19.9 % (11.5-14.5) Platelet Count 302 x10^3/uL (140-400) Neutrophils (%) (Auto) 63 % (31-73) Lymphocytes (%) (Auto) 29 % (24-48) Monocytes (%) (Auto) 7 % (0-9) Eosinophils (%) (Auto) 1 % (0-3) Basophils (%) (Auto) 1 % (0-3) Neutrophils # (Auto) 5.4 x10^3/uL (1.8-7.7) Lymphocytes # (Auto) 2.5 x10^3/uL (1.0-4.8) Monocytes # (Auto) 0.6 x10^3/uL (0.0-1.1) Eosinophils # (Auto) 0.0 x10^3/uL (0.0-0.7) Basophils # (Auto) 0.0 x10^3/uL (0.0-0.2) Platelet Estimate Adequate (ADEQUATE) Hypochromasia Mod Poikilocytosis Slight Anisocytosis Slight Microcytosis Slight Ovalocytes Few Sodium Level 137 mmol/L (136-145) Potassium Level 3.7 mmol/L (3.5-5.1) Chloride Level 101 mmol/L (98-107) Carbon Dioxide Level 28 mmol/L (21-32) Anion Gap 8 (6-14) Blood Urea Nitrogen 14 mg/dL (7-20) Creatinine 0.7 mg/dL (0.6-1.0) Estimated GFR (Cockcroft-Gault) 107.8 BUN/Creatinine Ratio 20 (6-20) Glucose Level 87 mg/dL (70-99) Calcium Level 8.5 mg/dL (8.5-10.1) Total Bilirubin 0.4 mg/dL (0.2-1.0) Aspartate Amino Transf (AST/SGOT) 18 U/L (15-37) Alanine Aminotransferase (ALT/SGPT) 19 U/L (14-59) Alkaline Phosphatase 87 U/L (46-116) Total Protein 8.1 g/dL (6.4-8.2) Albumin 3.7 g/dL (3.4-5.0) Albumin/Globulin Ratio 0.8 (1.0-1.7) Lipase 108 U/L (73-393) Images Images CT C/A/P and US essentially unremarkable, upper limit of normal appendix, but no inflammation Assessment/Plan Assessment/Plan abd pain, improved appears improved, no surgical plans currently Thanks for consult! MAHESH POND MD Oct 19, 2020 14:09
[2020-10-19 15:00] VITALS: BP 121/75
--- NOTE | 2020-10-19 15:56 | PDOC3 ---
Discharge Summary Visit Information Date of Admission: Oct 19, 2020 Date of Discharge: Oct 19, 2020 Final Diagnosis Problems Medical Problems: (1) Abdominal pain Status: Acute Brief Hospital Course Allergies Allergies Coded Allergies Type Severity Reaction Last Updated Verified No Known Drug Allergies 10/13/14 No Vital Signs Vital Signs Date Time Temp Pulse Resp B/P (MAP) Pulse Ox O2 Delivery O2 Flow Rate FiO2 10/19/20 11:00 97.8 80 17 91/50 (64) 99 Room Air 97.8 Lab Results Laboratory Tests Test 10/18/20 19:50 10/18/20 20:20 10/18/20 21:17 Urine Collection Type Unknown Urine Color Yellow Urine Clarity Clear Urine pH 6.5 (<5.0-8.0) Urine Specific [place] 1.010 (1.000-1.030) Urine Protein Negative mg/dL (NEG-TRACE) Urine Glucose (UA) Negative mg/dL (NEG) Urine Ketones (Stick) Negative mg/dL (NEG) Urine Blood Trace (NEG) Urine Nitrite Negative (NEG) Urine Bilirubin Negative (NEG) Urine Urobilinogen Dipstick 1.0 mg/dL (0.2 mg/dL) Urine Leukocyte Esterase Negative (NEG) Urine RBC Occ /HPF (0-2) Urine WBC 0 /HPF (0-4) Urine Squamous Epithelial Cells Few /LPF Urine Bacteria 0 /HPF (0-FEW) Bedside Urine HCG, Qualitative Hcg negative (Negative) White Blood Count 8.6 x10^3/uL (4.0-11.0) Red Blood Count 4.82 x10^6/uL (3.50-5.40) Hemoglobin 11.0 g/dL (12.0-15.5) Hematocrit 35.3 % (36.0-47.0) Mean Corpuscular Volume 73 fL (79-100) Mean Corpuscular Hemoglobin 23 pg (25-35) Mean Corpuscular Hemoglobin Concent 31 g/dL (31-37) Red Cell Distribution Width 19.9 % (11.5-14.5) Platelet Count 302 x10^3/uL (140-400) Neutrophils (%) (Auto) 63 % (31-73) Lymphocytes (%) (Auto) 29 % (24-48) Monocytes (%) (Auto) 7 % (0-9) Eosinophils (%) (Auto) 1 % (0-3) Basophils (%) (Auto) 1 % (0-3) Neutrophils # (Auto) 5.4 x10^3/uL (1.8-7.7) Lymphocytes # (Auto) 2.5 x10^3/uL (1.0-4.8) Monocytes # (Auto) 0.6 x10^3/uL (0.0-1.1) Eosinophils # (Auto) 0.0 x10^3/uL (0.0-0.7) Basophils # (Auto) 0.0 x10^3/uL (0.0-0.2) Platelet Estimate Adequate (ADEQUATE) Hypochromasia Mod Poikilocytosis Slight Anisocytosis Slight Microcytosis Slight Ovalocytes Few Sodium Level 137 mmol/L (136-145) Potassium Level 3.7 mmol/L (3.5-5.1) Chloride Level 101 mmol/L (98-107) Carbon Dioxide Level 28 mmol/L (21-32) Anion Gap 8 (6-14) Blood Urea Nitrogen 14 mg/dL (7-20) Creatinine 0.7 mg/dL (0.6-1.0) Estimated GFR (Cockcroft-Gault) 107.8 BUN/Creatinine Ratio 20 (6-20) Glucose Level 87 mg/dL (70-99) Calcium Level 8.5 mg/dL (8.5-10.1) Total Bilirubin 0.4 mg/dL (0.2-1.0) Aspartate Amino Transf (AST/SGOT) 18 U/L (15-37) Alanine Aminotransferase (ALT/SGPT) 19 U/L (14-59) Alkaline Phosphatase 87 U/L (46-116) Total Protein 8.1 g/dL (6.4-8.2) Albumin 3.7 g/dL (3.4-5.0) Albumin/Globulin Ratio 0.8 (1.0-1.7) Lipase 108 U/L (73-393) Laboratory Tests Test 10/18/20 19:50 10/18/20 20:20 10/18/20 21:17 Urine Collection Type Unknown Urine Color Yellow Urine Clarity Clear Urine pH 6.5 (<5.0-8.0) Urine Specific [place] 1.010 (1.000-1.030) Urine Protein Negative mg/dL (NEG-TRACE) Urine Glucose (UA) Negative mg/dL (NEG) Urine Ketones (Stick) Negative mg/dL (NEG) Urine Blood Trace (NEG) Urine Nitrite Negative (NEG) Urine Bilirubin Negative (NEG) Urine Urobilinogen Dipstick 1.0 mg/dL (0.2 mg/dL) Urine Leukocyte Esterase Negative (NEG) Urine RBC Occ /HPF (0-2) Urine WBC 0 /HPF (0-4) Urine Squamous Epithelial Cells Few /LPF Urine Bacteria 0 /HPF (0-FEW) Bedside Urine HCG, Qualitative Hcg negative (Negative) White Blood Count 8.6 x10^3/uL (4.0-11.0) Red Blood Count 4.82 x10^6/uL (3.50-5.40) Hemoglobin 11.0 g/dL (12.0-15.5) Hematocrit 35.3 % (36.0-47.0) Mean Corpuscular Volume 73 fL (79-100) Mean Corpuscular Hemoglobin 23 pg (25-35) Mean Corpuscular Hemoglobin Concent 31 g/dL (31-37) Red Cell Distribution Width 19.9 % (11.5-14.5) Platelet Count 302 x10^3/uL (140-400) Neutrophils (%) (Auto) 63 % (31-73) Lymphocytes (%) (Auto) 29 % (24-48) Monocytes (%) (Auto) 7 % (0-9) Eosinophils (%) (Auto) 1 % (0-3) Basophils (%) (Auto) 1 % (0-3) Neutrophils # (Auto) 5.4 x10^3/uL (1.8-7.7) Lymphocytes # (Auto) 2.5 x10^3/uL (1.0-4.8) Monocytes # (Auto) 0.6 x10^3/uL (0.0-1.1) Eosinophils # (Auto) 0.0 x10^3/uL (0.0-0.7) Basophils # (Auto) 0.0 x10^3/uL (0.0-0.2) Platelet Estimate Adequate (ADEQUATE) Hypochromasia Mod Poikilocytosis Slight Anisocytosis Slight Microcytosis Slight Ovalocytes Few Sodium Level 137 mmol/L (136-145) Potassium Level 3.7 mmol/L (3.5-5.1) Chloride Level 101 mmol/L (98-107) Carbon Dioxide Level 28 mmol/L (21-32) Anion Gap 8 (6-14) Blood Urea Nitrogen 14 mg/dL (7-20) Creatinine 0.7 mg/dL (0.6-1.0) Estimated GFR (Cockcroft-Gault) 107.8 BUN/Creatinine Ratio 20 (6-20) Glucose Level 87 mg/dL (70-99) Calcium Level 8.5 mg/dL (8.5-10.1) Total Bilirubin 0.4 mg/dL (0.2-1.0) Aspartate Amino Transf (AST/SGOT) 18 U/L (15-37) Alanine Aminotransferase (ALT/SGPT) 19 U/L (14-59) Alkaline Phosphatase 87 U/L (46-116) Total Protein 8.1 g/dL (6.4-8.2) Albumin 3.7 g/dL (3.4-5.0) Albumin/Globulin Ratio 0.8 (1.0-1.7) Lipase 108 U/L (73-393) Brief Hospital Course Ms. Riddle is a 19 old female who presented with abdominal pain. CT abdomen pelvis was obtained initially concerning for possible appendicitis. Consultation was placed to general surgery. Nominal pain improved, no plans for surgical intervention. She is able to discharge home with PCP follow-up. Discharge Information Condition at Discharge: Improved Follow Up: Weeks Disposition/Orders: D/C to Home Scheduled PRN Dicyclomine Hcl (Dicyclomine Hcl) 10 Mg Capsule, 1 CAP PO PRN Q6HRS PRN for ABDOMINAL CRAMPS, #30 Ref 0 Prescribed by: ZHENG SHEN MD on 10/19/20 1139 Discontinued Medications Info (No Known Medications Prior To Admisstion) Each, 1 EACH MC 1X for no home meds, (Reported) Entered as Reported by: JEANMARIE IVORY on 10/19/20422 Last Action: New Order on 10/19/20422 by JEANMARIE IVORY Justicifation of Admission Dx: Justifications for Admission: Justification of Admission Dx: Yes (Abdominal pain concerning for appendicitis) ZHENG SHEN MD Oct 19, 2020 15:56
--- NOTE | 2020-10-19 16:19 | NUR ---
Discharge Note: PT DISCHARGED HOME WITH SELF CARE. PT LEFT FACILITY VIA PRIVATE VEHICLE WITH BOYFRIEND AT 1615. PT STABLE AND ALERT UPON DISCHARGE. PT PIV REMOVED FROM R AC WITHOUT COMPLICATIONS, BANDAGE APPLIED. PT EDUCATED ABOUT DISCHARGE INSTRUCTIONS, DISCHARGE MEDICATIONS, AND FOLLOW-UP INSTRUCTIONS. PT VOICED NO CONCERNS AT THIS TIME. PT LEFT WITH ALL PERSONAL BELONGINGS. CASSANDRA MARIA Discharge instructions and discharge home medications reviewed with Patient and a copy given. All questions have been answered and understanding verbalized.
== END 2020-10-19 16:21 | disposition home or self-care (01) ==
LOC: ER 17:24 → 6 SOUTH 10-19 03:00
PROVIDERS: ADMIT Internal Medicine; ATTEND Internal Medicine
DX: R10.12 Left upper quadrant pain (principal); R10.32 Left lower quadrant pain; Z87.440 Personal history of urinary (tract) infections
CPT/HCPCS: 36415; 71275; 74177; 76856; 80053; 81001; 81025; 83690; 85025; 99285; G0378; Q9967; G0379

== ENCOUNTER 2021-02-19 00:06 | Emergency (ER) | payer SELFPAY ==
[~2021-02-19 00:06] MED LIST changes: +DICY10CA3 PO
== END 2021-02-19 00:53 | disposition left against medical advice (07) ==
LOC: ER 00:06
DX: R10.9 Unspecified abdominal pain (principal); Z53.21 Procedure and treatment not carried out due to patient leaving prior to being seen by health care provider

== ENCOUNTER 2021-05-25 14:28 | Emergency (ER) | payer SELFPAY ==
[~2021-05-25] VITALS: Ht 157.5 cm; Wt 79.5 kg
[2021-05-25] MEDS ORDERED: ONDANSETRON PF 4 MG/2 ML VIAL. IVP ONE (15:15)
[2021-05-25] MEDS ORDERED: ACETAMINOPHEN 325 MG TABLET. PO ONE (15:15)
[2021-05-25 15:24] LABS: BILIRUBIN,URINE NEGATIVE (NEG); CLARITY,URINE CLOUDY; COLOR,URINE YELLOW; NITRITE,URINE NEGATIVE (NEG); PROTEIN,URINE NEGATIVE (NEG-TRACE)
--- NOTE | 2021-05-25 15:28 | PHYS DOC ---
Past Medical History Past Medical History: No Pertinent History Past Surgical History: No Surgical History Smoking Status: Never Smoker Alcohol Use: None Drug Use: None General Adult EDM: Chief Complaint: ABDOMINAL PAIN HPI: HPI: Patient is a 20 year old female who presents with 1 month of left lower quadran t pain but she states it is now constant. She rates her pain a 7 out of 10 and states it is hard to explain what it feels like. She was here in October for abdominal pain and was seen by Dr. Martin for her appendix being in the upper limit of normal. Patient states she has not had a menstrual cycle since February 18. She states she does have nausea but she does not vomit. She denies vomiting, chest pain, shortness of air, fever, cough, diarrhea, constipation, vaginal discharge, concern for STD, back pain, headache, dizziness. Review of Systems: Review of Systems: Constitutional: Denies fever or chills. [] Eyes: Denies change in visual acuity. [] HENT: Denies nasal congestion or sore throat. [] Respiratory: Denies cough or shortness of breath. [] Cardiovascular: Denies chest pain or edema. [] GI: + abdominal pain, +nausea, denies vomiting, bloody stools or diarrhea. [] : Denies dysuria. [] Musculoskeletal: Denies back pain or joint pain. [] Integument: Denies rash. [] Neurologic: Denies headache, focal weakness or sensory changes. [] Endocrine: Denies polyuria or polydipsia. [] Lymphatic: Denies swollen glands. [] Psychiatric: Denies depression or anxiety. [] Heart Score: C/O Chest Pain: No Current Medications: Current Medications Medications (Trade) Dose Ordered Sig/[facility] Start Time Stop Time Status Last Admin Dose Admin Acetaminophen (Tylenol) 650 mg 1X ONCE 05/25/21 15:15 05/25/21 15:23 DC Ondansetron HCl (Zofran) 4 mg 1X ONCE 05/25/21 15:15 05/25/21 15:23 DC Allergies: Allergies: Allergies Coded Allergies Type Severity Reaction Last Updated Verified No Known Drug Allergies 10/13/14 No Physical Exam: PE: Constitutional: Well developed, well nourished, no acute distress, non-toxic appearance. [] HENT: Normocephalic, atraumatic, bilateral external ears normal, oropharynx moist, no oral exudates, nose normal. [] Eyes: PERRLA, EOMI, conjunctiva normal, no discharge. [] Neck: Normal range of motion, no tenderness, supple, no stridor. [] Cardiovascular:Heart rate regular rhythm, no murmur [] Lungs & Thorax: Bilateral breath sounds clear to auscultation [] Abdomen: Bowel sounds normal, soft, left lower tenderness, no masses, no pulsatile masses. [] Skin: Warm, dry, no erythema, no rash. [] Back: No tenderness, no CVA tenderness. [] Extremities: No tenderness, no cyanosis, no clubbing, ROM intact, no edema. [] Neurologic: Alert and oriented X 3, normal motor function, normal sensory function, no focal deficits noted. [] Psychologic: Affect normal, judgement normal, mood normal. [] Current Patient Data: Labs: Laboratory Tests Test 05/25/21 15:12 POC Urine HCG, Qualitative Hcg negative (Negative) EKG: EKG: [] Radiology/Procedures: Radiology/Procedures: [] Impression: [facility] [address] [place] [address] IMAGING REPORT Signed PATIENT: OLIVIA MARIA ACCOUNT: [id number] : 2000 LOCATION: ER AGE: 20 SEX: F EXAM STATUS: REG ER ORD. PHYSICIAN: DELPHINE WYMAN APRN REASON: left lower abd pain, nausea PROCEDURE: CT ABD PELV W/ IV CONTRST ONLY CT abdomen and pelvis with contrast PQRS statement: CT scans at this facility use dose reduction including either automated exposure control, iterative reconstructions, and /or weight based radiation dosing via mA and kV modification when appropriate to reduce radiation dose to as low as reasonably achievable. Contrast: 75 mL Omnipaque 300 intravenous contrast HISTORY: Left lower quadrant abdominal pain, nausea. COMPARISON: CT abdomen and pelvis October 18, 2020 Abdomen findings: 3 mm linear scar lateral subpleural right middle lobe stable. Liver, gallbladder, spleen, pancreas, adrenal glands and kidneys are unremarkable. The appendix is negative. No obstruction or inflammation the GI tract. No abdominal fluid or adenopathy. Bones unremarkable. Pelvis findings: Central uterine hypodensity could be fluid or proliferative endometrium approximate thickness of 1.5 cm upper limits normal. There is a left ovarian 4.8 cm hypodense lesion internal density 20 units. Right ovary, bladder, rectum and bones are unremarkable. Tiny volume of fluid cul-de-sac. No adenopathy in the pelvis. IMPRESSION: 1. No acute process in the abdomen. Appendix is negative. 2. 4.8 cm hypodense probable cystic lesion of the left ovary. Measured internal density 22 units which could indicate mildly dense fluid from hemorrhagic or proteinaceous debris. Further assessment with pelvic sonography would be of benefit to exclude a complex cystic or solid mass. Electronically signed by: Alfredo White MD (05/25/2021 4:47 PM) [facility] [place] DICTATED and SIGNED BY: ALFREDO WHITE MD DATE: 05/25/21 [id number] [facility] [address] [place] [address] IMAGING REPORT Signed PATIENT: OLIVIA MARIA ACCOUNT: [id number] : 2000 LOCATION: ER AGE: 20 SEX: F EXAM STATUS: REG ER ORD. PHYSICIAN: DELPHINE WYMAN APRN REASON: abnormal left ovary and pain PROCEDURE: PELVIS W/TV EXAM: ULTRASOUND PELVIS INDICATION: Reason: abnormal left ovary and pain / Spl. Instructions: / History: . Last menstrual period was . COMPARISON: None available. TECHNIQUE: Transabdominal and transvaginal sonography was performed. FINDINGS: The uterus measures 7.6 x 6.1 x 4.9 cm. The endometrium measures 1.8 cm. There is no focal myometrial abnormality The right ovary measures 3.2 x 3.5 x 2.4 cm. Flow seen to the right ovary. No right adnexal mass. The left ovary measures 5 x 4.7 x 3.5 cm. A 4.7 cm left adnexal complex cystic structure is seen with internal debris. Small volume free pelvic fluid. IMPRESSION: 1. 4.7 cm left adnexal complex cyst. This is nonspecific but may represent hemorrhagic cyst, follow-up ultrasound in 6 weeks is recommended. 2. Endometrial echocomplex measures 1.8 cm, can be correlated with phase of menstrual cycle Electronically signed by: James Stapleton MD (05/25/2021 7:32 PM) [facility] DICTATED and SIGNED BY: JAMES STAPLETON MD DATE: 05/25/21 [id number] 0 Course & Med Decision Making: Course & Med Decision Making Pertinent Labs and Imaging studies reviewed. (See chart for details) See HPI. Alert and oriented x4. Ambulatory steady gait. Speaks in full clear sentences. States that the pain worsens when she lays on the left side. Abdomen is soft but slightly tender to the left lower quadrant. She states is more like a discomfort type pain. No CVA tenderness. Afebrile. Skin pink warm and dry. Mucous membranes are moist. [] Dragon Disclaimer: Dragon Disclaimer: This electronic medical record was generated, in whole or in part, using a voice recognition dictation system. Departure Departure Impression: Primary Impression: Hemorrhagic cyst of left ovary Disposition: HOME / SELF CARE / HOMELESS Condition: STABLE Referrals: NO PCP (PCP) SADE GUTIERREZ MD Patient Instructions: Ovarian Cyst Additional Instructions: Fall with dispatcher chief coal slurry dizziness possible. Use a heating pad and ibuprofen to help with your pain. If anything worsens or your pain becomes more severe return emergency room. DELPHINE WYMAN APRN May 25, 2021 15:28
[2021-05-25] MEDS ORDERED: IV NORMAL SALINE 1000ML BAG 1,000 ML IV ONE (15:30)
[2021-05-25 15:34] LABS: BACTERIA,URINE FEW /HPF (0-FEW); RBC,URINE OCC /HPF (0-2)
[2021-05-25 15:45] LABS: BASO % 0 % (0-3); EOS # 0.1 x10^3/uL (0.0-0.7); EOS % 1 % (0-3); HEMATOCRIT 31.5 % (36.0-47.0); HEMOGLOBIN 9.8 g/dL (12.0-15.5); LYMPH # 2.1 x10^3/uL (1.0-4.8); LYMPH % 23 % (24-48); MEAN CORPUSCULAR HEMOGLOBIN 21 pg (25-35); MEAN CORPUSCULAR HGB CONC 31 g/dL (31-37); MEAN CORPUSCULAR VOLUME 69 fL (79-100); MONO # 0.8 x10^3/uL (0.0-1.1); MONO % 9 % (0-9); NEUT # 6.1 x10^3/uL (1.8-7.7); NEUT % 67 % (31-73); PLATELET COUNT 323 x10^3/uL (140-400); RED BLOOD COUNT 4.59 x10^6/uL (3.50-5.40); RED CELL DISTRIBUTION WIDTH 19.7 % (11.5-14.5); WHITE BLOOD COUNT 9.1 x10^3/uL (4.0-11.0)
[2021-05-25 16:02] LABS: PLT ESTIMATE ADEQUATE (ADEQUATE)
[2021-05-25 16:03] LABS: ANISOCYTOSIS SLIGHT; HYPOCHROMIA MOD; MICROCYTOSIS MOD; OVALOCYTES OCC; POIKILOCYTOSIS SLIGHT
[2021-05-25 16:05] LABS: CALCIUM 8.1 mg/dL (8.5-10.1); CREATININE 0.7 mg/dL (0.6-1.0); GFR 106.7; POTASSIUM 3.4 mmol/L (3.5-5.1)
[2021-05-25 16:11] LABS: ALBUMIN 3.2 g/dL (3.4-5.0); ALBUMIN/GLOBULIN RATIO 0.7 (1.0-1.7); TOTAL BILIRUBIN 0.3 mg/dL (0.2-1.0); TOTAL PROTEIN 7.6 g/dL (6.4-8.2)
[2021-05-25] MEDS ORDERED: IOHEXOL 300 MG/ML 100ML VIAL. IV ONE (16:15)
[2021-05-25] MEDS ORDERED: CONTRAST GIVEN. MC PRN (16:30)
[2021-05-25 16:35] VITALS: BP 120/63
--- NOTE | 2021-05-25 16:50 | RAD ---
CT abdomen and pelvis with contrast PQRS statement: CT scans at this facility use dose reduction including either automated exposure cont rol, iterative reconstructions, and /or weight based radiation dosing via mA and kV modification when appropriate to reduce radiation dose to as low as reasonably achievable. Contrast: 75 mL Omnipaque 300 intravenous contrast HISTORY: Left lower quadrant abdominal pain, nausea. COMPARISON: CT abdomen and pelvis October 18, 2020 Abdomen findings: 3 mm linear scar lateral subpleural right middle lobe stable. Liver, gallbladder, s pleen, pancreas, adrenal glands and kidneys are unremarkable. The appendix is negative. No obstructio n or inflammation the GI tract. No abdominal fluid or adenopathy. Bones unremarkable. Pelvis findings: Central uterine hypodensity could be fluid or proliferative endometrium approximate thickness of 1.5 cm upper limits normal. There is a left ovarian 4.8 cm hypodense lesion internal den sity 20 units. Right ovary, bladder, rectum and bones are unremarkable. Tiny volume of fluid cul-de-s ac. No adenopathy in the pelvis. IMPRESSION: 1. No acute process in the abdomen. Appendix is negative. 2. 4.8 cm hypodense probable cystic lesion of the left ovary. Measured internal density 22 units whic h could indicate mildly dense fluid from hemorrhagic or proteinaceous debris. Further assessment with pelvic sonography would be of benefit to exclude a complex cystic or solid mass. Electronically signed by: Jovanny White MD (05/25/2021 4:47 PM) [facility]
--- NOTE | 2021-05-25 19:34 | RAD ---
EXAM: ULTRASOUND PELVIS INDICATION: Reason: abnormal left ovary and pain / Spl. Instructions: / History: . Last menstrual p eriod was . COMPARISON: None available. TECHNIQUE: Transabdominal and transvaginal sonography was performed. FINDINGS: The uterus measures 7.6 x 6.1 x 4.9 cm. The endometrium measures 1.8 cm. There is no focal myometria l abnormality The right ovary measures 3.2 x 3.5 x 2.4 cm. Flow seen to the right ovary. No right adnexal mass. The left ovary measures 5 x 4.7 x 3.5 cm. A 4.7 cm left adnexal complex cystic structure is seen wi th internal debris. Small volume free pelvic fluid. IMPRESSION: 1. 4.7 cm left adnexal complex cyst. This is nonspecific but may represent hemorrhagic cyst, follow- up ultrasound in 6 weeks is recommended. 2. Endometrial echocomplex measures 1.8 cm, can be correlated with phase of menstrual cycle Electronically signed by: James Jose MD (05/25/2021 7:32 PM) [place]
== END 2021-05-25 20:53 | disposition home or self-care (01) ==
LOC: ER 14:28
DX: N83.202 Unspecified ovarian cyst, left side (principal)
CPT/HCPCS: 36415; 74177; 76830; 76856; 80053; 81001; 81025; 83690; 85025; 87086; 96361; 96374; 99285; J2405; J7030; Q9967

== ENCOUNTER 2021-12-08 | Emergency (ER) | payer SELFPAY ==
[~2021-12-08] VITALS: Ht 157.5 cm; Wt 72.7 kg
--- NOTE | 2021-12-08 00:45 | PHYS DOC ---
Past Medical History Past Medical History: No Pertinent History Past Surgical History: No Surgical History Smoking Status: Never Smoker Alcohol Use: None Drug Use: None General Adult EDM: Chief Complaint: CHEST WALL PAIN HPI: HPI: Patient is a 20 year old female who present to ER for evaluation of left side chest pain going on for 2 days. Patient described the pain as sharp stabbing in nature, hurts worse when she take a deep breath or cough. Patient is not a smoker, she is on control medication, denies any history of blood clot disorder, denies any recent travel operation. Review of Systems: Review of Systems: Constitutional: Denies fever or chills. [] Eyes: Denies change in visual acuity. [] HENT: Denies nasal congestion or sore throat. [] Respiratory: Denies cough or shortness of breath. [] Cardiovascular: Positive for left-sided chest pain, no edema GI: Denies abdominal pain, nausea, vomiting, bloody stools or diarrhea. [] : Denies dysuria. [] Musculoskeletal: Denies back pain or joint pain. [] Integument: Denies rash. [] Neurologic: Denies headache, focal weakness or sensory changes. [] Endocrine: Denies polyuria or polydipsia. [] Lymphatic: Denies swollen glands. [] Psychiatric: Denies depression or anxiety. [] Heart Score: C/O Chest Pain: N/A Risk Factors: Risk Factors: DM, Current or recent (<one month) smoker, HTN, HLP, family history of CAD, obesity. Risk Scores: Score 0 - 3: 2.5% MACE over next 6 weeks - Discharge Home Score 4 - 6: 20.3% MACE over next 6 weeks - Admit for Clinical Observation Score 7 - 10: 72.7% MACE over next 6 weeks - Early Invasive Strategies Allergies: Allergies: Allergies Coded Allergies Type Severity Reaction Last Updated Verified No Known Drug Allergies 10/13/14 No Physical Exam: PE: Constitutional: Well developed, well nourished, no acute distress, non-toxic appearance. [] HENT: Normocephalic, atraumatic, bilateral external ears normal, oropharynx moist, no oral exudates, nose normal. [] Eyes: PERRLA, EOMI, conjunctiva normal, no discharge. [] Neck: Normal range of motion, no tenderness, supple, no stridor. [] Cardiovascular:Heart rate regular rhythm, no murmur, left side chest wall tender to palpation, chest pain is reproducible Lungs & Thorax: Bilateral breath sounds clear to auscultation [] Abdomen: Bowel sounds normal, soft, no tenderness, no masses, no pulsatile masses. [] Skin: Warm, dry, no erythema, no rash. [] Back: No tenderness, no CVA tenderness. [] Extremities: No tenderness, no cyanosis, no clubbing, ROM intact, no edema. [] Neurologic: Alert and oriented X 3, normal motor function, normal sensory function, no focal deficits noted. [] Psychologic: Affect normal, judgement normal, mood normal. [] Current Patient Data: Vital Signs: Vital Signs Date Time Temp Pulse Resp B/P (MAP) Pulse Ox O2 Delivery O2 Flow Rate FiO2 12/08/21 00:13 98.4 83 18 127/65 (85) 100 Room Air 98.4 EKG: EKG: EKG was done 0 23, heart rate of 75 bpm, sinus rhythm, no ST segment elevation. Chest x-ray did not show any acute infiltration or pneumothorax or any acute problem. Radiology/Procedures: Radiology/Procedures: [][facility] [address] [place], [place] [id number] IMAGING REPORT Signed PATIENT: OLIVIA MARIA ACCOUNT: [id number] : 2000 LOCATION: ER AGE: 20 SEX: F EXAM STATUS: REG ER ORD. PHYSICIAN: DORIAN AGUILERA DO REASON: chest pain PROCEDURE: PORTABLE CHEST 1V INDICATION: Reason: chest pain / Spl. Instructions: / History: COMPARISON: October 2020 FINDINGS: Frontal view of chest obtained. Hypoexpanded exam without definite focal airspace consolidation. Cardiac silhouette is similar to prior. IMPRESSION: * No focal airspace consolidation or edema. Electronically signed by: Julita Dove MD (12/08/2021 3:08 AM) [id number] DICTATED and SIGNED BY: JULITA DOVE MD DATE: 12/08/21 0306 Course & Med Decision Making: Course & Med Decision Making Pertinent Labs and Imaging studies reviewed. (See chart for details) Patient is a 20-year-old female who present to ER for evaluation of left-sided chest pain for 2 days, EKG and chest x-ray did not show any acute problem. Patient is at low risk for having blood clot disorder. Patient did not have any trouble breathing, her oxygen saturation 100% on room air. Chest pain is musculoskeletal in nature. Patient be discharged home, recommend take ibuprofen for pain control Dragon Disclaimer: Dragon Disclaimer: This electronic medical record was generated, in whole or in part, using a voice recognition dictation system. Departure Departure Impression: Primary Impression: Chest wall pain Disposition: HOME / SELF CARE / HOMELESS Condition: STABLE Referrals: NO PCP (PCP) Follow-up with your doctor as needed. Patient Instructions: Chest Wall Pain Additional Instructions: Thank you for visiting our Emergency Department. We appreciate you trusting us with your care. If any additional problems come up don't hesitate to return to visit us. Please follow up with your primary care provider so they can plan additional care if needed and know about the problem that you had. If symptoms worsen come back to the Emergency Department. Any concerning symptoms that start such as chest pain, shortness of air, weakness or numbness on one side of the body, running high fevers or any other concerning symptoms return to the ER. DORIAN AGUILERA DO December 08, 2021 00:45
[2021-12-08 01:08] VITALS: BP 110/53
--- NOTE | 2021-12-08 03:11 | RAD ---
INDICATION: Reason: chest pain / Spl. Instructions: / History: COMPARISON: October 2020 FINDINGS: Frontal view of chest obtained. Hypoexpanded exam without definite focal airspace consolidation. Cardiac silhouette is similar to valentino or. IMPRESSION: * No focal airspace consolidation or edema. Electronically signed by: Chaparro Dove MD (12/08/2021 3:08 AM) [id number]
--- NOTE | 2021-12-09 03:45 | EKG ---
[facility] [address] [place] [address] Test Date: 2021-12-08 Test Time: 00:23:30 Pat Name: OLIVIA MARIA Department: Room: Gender: F Raise Driller: DEREK : 2000 Requested By: DORIAN AGUILERA Order Number: [id number] Reading MD: Be Rush MD Measurements Intervals [place] Rate: 75 P: 0 CA: 142 QRS: 54 QRSD: 80 T: 26 QT: 362 QTc: 407 Interpretive Statements SINUS RHYTHM Electronically Signed On 12-11-2021 9:02:37 CDT by Be Rush MD
== END 2021-12-08 01:30 | disposition home or self-care (01) ==
LOC: ER
DX: R07.89 Other chest pain (principal); R05.9 Cough, unspecified
CPT/HCPCS: 71045; 93005; 99283